=== PATIENT | male | born 1980 | race Caucasian/White ===

== ENCOUNTER 2019-02-09 12:42 | Outpatient (CLI) | payer OTHER ==
--- NOTE | 2019-02-09 14:22 | MRI ---
MRI LUMBAR SPINE WITHOUT CONTRAST: HISTORY: Paresthesia of skin. Patient having bilateral leg and foot pain and numbness. FINDINGS: Vertebral body heights and marrow signal are maintained. There is mild disk desiccation at the L1-L2 and at the L4-L5 levels. No focal disk herniation, central canal stenosis or neural foraminal stenosi s is seen. Bilateral facet hypertrophic changes are noted in the lower lumbar spine. Anterior osteoph ytes are noted at the T11-T12 level. No significant central canal stenosis or neural foraminal stenos is is seen. The paraspinal musculature is normal. IMPRESSION: No significant abnormalities are identified. POS: [facility]
== END 2019-02-09 12:43 | disposition home or self-care (01) ==
LOC: SCSMRI 12:42
PROVIDERS: ATTEND Family Medicine
DX: R20.2 Paresthesia of skin (principal)
CPT/HCPCS: 72148

== ENCOUNTER 2023-08-29 10:15 | Inpatient (IN) | payer OTHER ==
[2023-08-29] MEDS ORDERED: Ketorolac Tromethamine 30 MG (1 mL) VIAL ONE (11:35)
[2023-08-29 11:40] LABS: #Basophils 0.05 10x3/uL (0.0-0.2); %Basophils 1.3 % (0.0-1.0); %Eosinophils 3.8 % (0.0-10.0); %Lymphocytes 35.9 % (21.0-51.0); %Monocytes 12.9 % (0.0-10.0); %Neutrophils 45.8 % (42.0-75.0); Hematocrit 50.7 % (42.0-52.0); Hemoglobin 17.2 g/dL (14.0-18.0); Mean Corpuscular HGB CONC 33.9 g/dL (32.0-36.0); Mean Corpuscular Volume 85.4 fL (78.0-98.0); Mean Platelet Volume 10.1 fL (7.4-10.4); Platelet Count 187 10x3/uL (130-400); RBC Distribution Width 12.9 % (11.5-14.5); Red Blood Cell (RBC) Count 5.94 mill/uL (4.70-6.10)
[2023-08-29 12:03] LABS: Bacteria/HPF None Seen HPF (None Seen); Bilirubin 2+ (Negative); Blood, Urine Negative (Negative); CAUTI Indications for Culture Pelvic or flank pain; Clarity Clear (Clear); Glucose, Urine (Dipstick) Normal (Negative); Ketone, Urine Negative (Negative); Leukocyte Negative Leu/uL (Negative); Nitrite Negative (Negative); Protein, Urine (Dipstick) Negative (Neg-Trace); RBC/HPF 0-3 HPF (0-3); Squamous Epithelial None Seen HPF (0-3); Urobilinogen Normal mg/dL (Less than 2); WBC/HPF 0-3 HPF (0-3)
[2023-08-29 12:05] LABS: Urine Culture Reflex No No
[2023-08-29 12:10] LABS: ALT (SGPT) 351 U/L (8-55); AST (SGOT) 128 U/L (5-34); Albumin 4.1 g/dL (3.5-5.0); Alkaline Phosphatase 143 U/L (40-110); Anion Gap 12 mmol/L (10-20); BUN (Urea Nitrogen) 9 mg/dL (8.9-20.6); Bilirubin, Total 7.8 mg/dL (0.2-1.2); CK (CPK) 70 U/L (30-200); Calc. Creatinine Clearance 0 mL/min (70-130); Calcium 9.7 mg/dL (7.8-10.44); Carbon Dioxide 26 mmol/L (22-29); Chloride 103 mmol/L (98-107); Estimated GFR 111; Globulin 4.1 g/dL (2.4-3.5); Glucose 145 mg/dL (70-105); Lipase 59 U/L (8-78); Potassium 4.3 mmol/L (3.5-5.1); Protein, Total 8.2 g/dL (6.0-8.3); Sodium 137 mmol/L (136-145)
[2023-08-29] MEDS ORDERED: Iopamidol-370 76% 500 ML MDV (1 ML CHARGE) ONE (12:39)
[2023-08-29 12:47] LABS: Influenza A by NAA Not Detected (NotDetected); Influenza B by NAA Not Detected (NotDetected); SARS-CoV-2 NAA Rapid Test DETECTED (NotDetected)
[2023-08-29 15:50] LABS: HBCM Index 0.08 S/CO (0-0.79); HBsAg Index 0.26 S/CO (0-0.99); Hep A IgM AB NONREACTIVE (NonReactive); Hep A IgM S/CO 0.16 S/CO (0-0.79); Hep B Surf Ag NONREACTIVE S/CO (NonReactive); Hep C IgG Ab NONREACTIVE S/CO (NonReactive); Hep C Index 0.08 S/CO (0-0.79); Hepatitis B Core IgM Abs NONREACTIVE S/CO (NonReactive)
[2023-08-29] MEDS ORDERED: Ondansetron PF 4 MG/2 ML Vial IVP PRN (15:57)
[2023-08-29] MEDS ORDERED: Ipratropium/Albuterol 3 ML NEB NEB PRN (15:57)
[2023-08-29] MEDS ORDERED: Morphine 2 MG/ML VIAL SLOW IVP PRN (15:57)
[2023-08-29] MEDS ORDERED: traMADol HCl 50 MG TAB PO PRN (16:01)
[2023-08-29] MEDS ORDERED: Sodium Chloride 0.9% 100 ML ONE (16:06)
[2023-08-29] MEDS ORDERED: Piperacillin/Tazobactam 4.5 GM VIAL ONE (16:06)
[2023-08-29] MEDS: Famotidine/PF 20 mg/2ml Vial SLOW IVP SCH (20:37)
[2023-08-29] MEDS: Sodium Chloride 0.9% 1,000 ML IV SCH (20:37)
[2023-08-29] MEDS: Acetaminophen 325 MG TAB PO SCH (20:38)
[2023-08-29] MEDS: Piperacillin/Tazobactam 3.375 GM in Sodium Chloride 0.9% 100 ML IVPB SCH (20:38)
[2023-08-29] MEDS: traMADol HCl 50 MG TAB PO SCH (20:38)
[2023-08-29] MEDS: Lidocaine 2% Viscous 10 mL, Alum & Magn 30 mL SSW SCH (20:55)
[2023-08-30 05:14] VITALS: BMI 31.9
[2023-08-30 07:01] LABS: #Basophils Less than 0.03 10x3/uL (0.0-0.2); %Basophils 0.6 % (0.0-1.0); %Eosinophils 3.8 % (0.0-10.0); %Lymphocytes 43.6 % (21.0-51.0); %Monocytes 11.2 % (0.0-10.0); %Neutrophils 40.5 % (42.0-75.0); Hematocrit 42.8 % (42.0-52.0); Hemoglobin 14.6 g/dL (14.0-18.0); Mean Corpuscular HGB CONC 34.1 g/dL (32.0-36.0); Mean Corpuscular Hemoglobin 29.1 pg (27.0-31.0); Mean Corpuscular Volume 85.4 fL (78.0-98.0); Mean Platelet Volume 10.1 fL (7.4-10.4); Platelet Count 136 10x3/uL (130-400); RBC Distribution Width 12.8 % (11.5-14.5); Red Blood Cell (RBC) Count 5.01 mill/uL (4.70-6.10)
[2023-08-30 07:20] LABS: ALT (SGPT) 243 U/L (8-55); AST (SGOT) 89 U/L (5-34); Albumin 3.3 g/dL (3.5-5.0); Alkaline Phosphatase 110 U/L (40-110); Anion Gap 13 mmol/L (10-20); BUN (Urea Nitrogen) 12 mg/dL (8.9-20.6); Bilirubin, Total 6.9 mg/dL (0.2-1.2); Calc. Creatinine Clearance 185 mL/min (70-130); Calcium 8.5 mg/dL (7.8-10.44); Carbon Dioxide 24 mmol/L (22-29); Chloride 104 mmol/L (98-107); Estimated GFR 112; Globulin 3.1 g/dL (2.4-3.5); Glucose 100 mg/dL (70-105); Potassium 3.7 mmol/L (3.5-5.1); Protein, Total 6.4 g/dL (6.0-8.3); Sodium 137 mmol/L (136-145)
[2023-08-30] MEDS ORDERED: Iopamidol 30 ML ONE (07:59)
[2023-08-30] MEDS ORDERED: fentaNYL PF 100 MCG/2 ML SYRINGE ONE (11:17)
[2023-08-30] MEDS ORDERED: Ondansetron PF 4 MG/2 ML Vial ONE (11:17)
[2023-08-30] MEDS ORDERED: SUGAMMADEX SODIUM 200 MG/2 ML VIAL ONE (11:17)
[2023-08-30] MEDS ORDERED: Dexamethasone 4 mg/ml Vial ONE (11:17)
[2023-08-30] MEDS ORDERED: Rocuronium Bromide 10 MG/ML (10ML VIAL) ONE (11:17)
[2023-08-30] MEDS ORDERED: Lidocaine 1% PF 5 ML VIAL ONE (11:17)
[2023-08-30] MEDS ORDERED: PROPOFOL 20 ML ONE (11:17)
[2023-08-30] MEDS ORDERED: Indomethacin 50 MG SUPP ONE (11:23)
[2023-08-30] MEDS ORDERED: Piperacillin/Tazobactam 3.375 GM VIAL ONE (11:26)
[2023-08-30] MEDS ORDERED: Sodium Chloride 0.9% 100 ML ONE (11:27)
[2023-08-30] MEDS ORDERED: Ipratropium/Albuterol 3 ML NEB ONE (12:58)
[2023-08-31 06:42] LABS: ALT (SGPT) 240 U/L (8-55); AST (SGOT) 86 U/L (5-34); Albumin 3.7 g/dL (3.5-5.0); Alkaline Phosphatase 112 U/L (40-110); Anion Gap 13 mmol/L (10-20); BUN (Urea Nitrogen) 15 mg/dL (8.9-20.6); Bilirubin, Total 3.7 mg/dL (0.2-1.2); Calc. Creatinine Clearance 177 mL/min (70-130); Calcium 9.5 mg/dL (7.8-10.44); Carbon Dioxide 26 mmol/L (22-29); Chloride 103 mmol/L (98-107); Estimated GFR 110; Globulin 3.9 g/dL (2.4-3.5); Glucose 159 mg/dL (70-105); Potassium 3.7 mmol/L (3.5-5.1); Protein, Total 7.6 g/dL (6.0-8.3); Sodium 138 mmol/L (136-145)
[2023-08-31 08:20] VITALS: BP 131/80; TEMP 97.8
== END 2023-08-31 12:25 | disposition home or self-care (01) | DRG 444 ==
LOC: ERS 10:15 → T4-B 15:57
PROVIDERS: ADMIT Specialist; ATTEND Specialist
PROC: 0FC98ZZ Extirpation of Matter from Common Bile Duct, Via Natural or Artificial Opening Endoscopic (ICD-10-PCS; principal; 2023-08-30)
DX: K80.70 Calculus of gallbladder and bile duct without cholecystitis without obstruction (principal); U07.1 COVID-19; F17.210 Nicotine dependence, cigarettes, uncomplicated
CPT/HCPCS: 36415; 74177; 76705; 80053; 80074; 81001; 82550; 83605; 83690; 85025; 87040; 93005; 96361; 96365; 96366; 96375; J1100; J1885; J2405; J2543; J2704; J3490; J7050; J7620; Q9967; S0028